=== PATIENT | female | born 1940 | race Caucasian/White ===

== ENCOUNTER → 2016-08-24 | Outpatient (CLI) | payer MEDICARE ==
[~2016-08-24] MED LIST: ACET325T38 PO; ASP81CT PO; ATN50T PO; BUDE6HFA IH; CALC-140 PO; CEFP250T3 PO; DICL100G13 TOP; HYDR473S17 PO; LVT.05T PO; LVT.1T PO; MECL-105 PO; PARO12.5 PO; TML5OP2.5 OS
[2016-08-24 13:55] VITALS: BP 153/102
--- NOTE | 2016-08-24 13:55 | Urgent Care T Sheet Gen (E) ---
Intake General Temperature (Fahrenheit): 99.2 Pulse: 98 Blood Pressure Systolic: 153 Blood Pressure Diastolic: 102 Respirations: 18 SPO2: 95 Description of Symptoms Patient presents with L shoulder pain which radiates down into the elbow. First noticed approx 10-14 days ago. States the upper arm has a bone ache. She is constantly massaging the area. No history of shoulder OA. No decreased ROM in the L shoulder. No weakness or numbness in the L UE. Denies any injury. Last month, the patient had similar pain along the L scapula and base of skull. Unsure if they're related. Patient states she is getting tired of "living on aspirin" Only daily medication the patient takes is an inhaler for COPD. No BP med. Daily smoker. History of Present Illness Allergies: Coded Allergies: Codeine (Verified Allergy, 01/03/12) Pt states not true allergy. Has taken previously with no problems. Etodolac (Verified Allergy, 01/03/12) epinephrine (Verified Allergy, 01/03/12) Pt states not true allergy. Had problems with dental procedure and received multiple doses without being numbed, had side effect from epinephrine. Home Meds Reported Medications Budesonide/Formoterol Fumarate (Symbicort 160/4.5 mcg Inhaler)1 Inhaler Aero2 Puff IH BID 01/09/12 Acetaminophen (Tylenol)325 Mg [id number] Mg PO Q 4H PRN 01/09/12 Timolol Maleate (Timoptic 0.5% Ophthalmic Solution)5 Ml Soln1 Drop OS DAILY 01/03/12 Atenolol 50 Mg [id number] Mg PO DAILY 01/03/12 Respiratory Constitutional Symptoms: No syptoms reported EENTM: No symptoms reported Respiratory: No symptoms reported Cardiovascular: No symptoms reported Musculoskeletal: Joint pain Muscle pain Neurological: No Numbness, No Tingling, No Weakness All Other Systems Reviewed Remaining Systems: All other systems reviewed with negative findings Past Miyoxnj-Wmltwr-Uyojvh Hx Patient's Social History Alcohol Use: Regularly Uses Smoking Status: Current every day smoker Infectious Disease Exposure: No Recent foreign travel: No Surgeries/Hospitalizations Hospitalization/Surgery Hx: hernia tonsillectomy abdi hysterectomy cataracts bilat lens implants bunionectomy Respiratory Respiratory History: COPD, Chronic Bronchitis Cardiovascular Cardiovascular History: Hypertension Neuro/Muscular Neuro/Muscular History: Headache, Memory Loss Comment: recent memory loss, forgets what saying in middle of sentence x 1 day Reproductive System Sexually Transmitted Diseases: No Genitouinary Comment: stress incont with coughing Gastrointestinal GI/Endocrine History: None Diabetes Diabetes: No HEENT Impaired Vision: None Hearing Impaired: None Integumentary Integumentary History: Skin cancer Cancer History of Cancer?: Yes Cancer type: skin Psychosocial Behavior Disorders: Anxiety Blood Transfusions Hx of Blood transfusions: No Physical Exam Physical Exam General Appearance: WD/WN No apparent distress Extremity Exam: Other (examination of the L UE reveals no shoulder subluxation. normal strength in the L shoulder and elbow. negative impingement sign. full, active, non-painful ROM in the L shoulder. No crepitus noted with movement. No pain with isolation of the rotator cuff muscles. no pain along the L clavicle. diffusely tender along the lateral trapezius muscle. very tender along the L supraspinatus muscle. no pain with palpation and isolated contraction of the UE muscles, including deltoid, biceps , triceps, forearm muscles. non tender to palpation over the medial and lateral epicondyles) Neurologic/Psychiatric Exam: No motor deficits (normal strength in L UE) No sensory deficits (normal sensation in L UE however did have a positive tinels over the L carpal tunnel. scar from previous release is noted. negative tinels over the L cubital tunnel.) Departure Urgent Care Impression Impression: Primary Impression: Supraspinatus tendinitis Qualified Code: M75.92 - Shoulder lesion, unspecified, left shoulder Additional Impression: HTN (hypertension) Qualified Code: I10 - Essential (primary) hypertension Departure Disposition: 01 HOME OR SELF-CARE Condition: Stable Additional Instructions: While she didn't have any pain with shoulder manipulation, and her rotator cuff muscles don't appear to be tender with contraction, she is very tender over the supraspinatus muscle. No radiating pain with palpation however. I have referred her to PT or OT for treatment, including modalities. I have also prescribed Voltaren gel which she may apply to affected area BID prn. If no better, she is to return and at that time, I may refer her to an orthopedist to evaluate the shoulder or to [facility] for trigger point injections. Regarding her HTN, encouraged her to stop smoking. Also follow a low salt diet. She needs to f/u with her PCP regarding. Patient understands DC instructions. All questions were answered. Scripts Diclofenac Sodium (Voltaren 1% Gel)100 Gm Gel1 Gm TOP BID PRN PAIN #1 TUBE Apply topically to affected area BID prn pain. Prov:ALINA FRANCO 08/24/16 End of report . ALINA FRANCO Aug 24, 2016 13:55
== END ==
LOC: MHUC 11:45
PROVIDERS: ATTEND Nurse Practitioner
DX: M75.92 Shoulder lesion, unspecified, left shoulder (principal); I10 Essential (primary) hypertension
CPT/HCPCS: 99213

== ENCOUNTER → 2016-09-23 | Outpatient (CLI) | payer MEDICARE ==
[2016-09-23 10:54] VITALS: BP 164/89
--- NOTE | 2016-09-23 10:54 | Urgent Care T Sheet Gen (E) ---
Intake General Temperature (Fahrenheit): 97.9 Pulse: 88 Blood Pressure Systolic: 164 Blood Pressure Diastolic: 89 Respirations: 22 SPO2: 97 Chief Complaint: UC stitches removal Description of Symptoms 76 year old female presents for removal of 2 stitches. State she was at [facility] office 10 days ago and had a reoccurring cyst removed. Stitches were to remain for 10 ten and then faby be removed. Deneis redness, pain, fever or chills. States she does not have a PCP and hasn't been able to find one locally that is accepting new patients. Source: Patient Exam Limitations: No limitations History of Present Illness Initial Comments No redness, drainage, or pain. Timing: Still present Associated Symptoms: Denies symptoms Recent Trauma: No Similar Sympotms Previously: Yes Allergies: Coded Allergies: Codeine (Verified Allergy, 01/03/12) Pt states not true allergy. Has taken previously with no problems. Etodolac (Verified Allergy, 01/03/12) epinephrine (Verified Allergy, 01/03/12) Pt states not true allergy. Had problems with dental procedure and received multiple doses without being numbed, had side effect from epinephrine. Home Meds Active Scripts Diclofenac Sodium (Voltaren 1% Gel)100 Gm Gel1 Gm TOP BID PRN PAIN #1 TUBE Apply topically to affected area BID prn pain. Prov:ALINA FRANCO 08/24/16 Reported Medications Budesonide/Formoterol Fumarate (Symbicort 160/4.5 mcg Inhaler)1 Inhaler Aero2 Puff IH BID 01/09/12 Acetaminophen (Tylenol)325 Mg [id number] Mg PO Q 4H PRN 01/09/12 Timolol Maleate (Timoptic 0.5% Ophthalmic Solution)5 Ml Soln1 Drop OS DAILY 01/03/12 Atenolol 50 Mg [id number] Mg PO DAILY 01/03/12 Respiratory Constitutional Symptoms: No syptoms reported Respiratory: No symptoms reported Cardiovascular: No symptoms reported Skin: No Change in color, No Dryness, No Rash, Other (2 stitches lateral and superior to left eye) All Other Systems Reviewed Remaining Systems: All other systems reviewed with negative findings Past Ldmhtec-Dzwbhd-Ygjlgp Hx Patient's Social History Alcohol Use: Regularly Uses Smoking Status: Current every day smoker Infectious Disease Exposure: No Recent foreign travel: No Surgeries/Hospitalizations Hospitalization/Surgery Hx: hernia tonsillectomy abdi hysterectomy cataracts bilat lens implants bunionectomy Respiratory Respiratory History: COPD, Chronic Bronchitis Cardiovascular Cardiovascular History: Hypertension Neuro/Muscular Neuro/Muscular History: Headache, Memory Loss Comment: recent memory loss, forgets what saying in middle of sentence x 1 day Reproductive System Sexually Transmitted Diseases: No Genitouinary Comment: stress incont with coughing Gastrointestinal GI/Endocrine History: None Diabetes Diabetes: No HEENT Impaired Vision: None Hearing Impaired: None Integumentary Integumentary History: Skin cancer Cancer History of Cancer?: Yes Cancer type: skin Psychosocial Behavior Disorders: Anxiety Blood Transfusions Hx of Blood transfusions: No Physical Exam Physical Exam General Appearance: WD/WN No apparent distress Skin Exam: Normal color Warm/dry/intact No rashes No embolic lesions Other (2 stitches left orbit, incision WA, no drainage, no redness) Procedures/Interventions Suture/Wound Check : Suture/Wound Check: Sutures removed/provider Progress Pt verbalized understanding of procedure and risk of impaired healing and potential scar formation. Two stitches removed. Pt tolerated procedure well. Departure Urgent Care Impression Chief Complaint: UC stitches removal Impression: Primary Impression: Elevated BP without diagnosis of hypertension Additional Impression: Encounter for removal of ina Departure Disposition: 01 HOME OR SELF-CARE Condition: Stable Referrals: Jorgito Okeefe MD (PCP) Patient Instructions: Suture Removal (GEN) Additional Instructions: Advised pt that her BP is elevated and she needs to see a PCP for reevaluation and potential treatment. Discussed risks of HTN and that strong suggest follow up Sunday. Monitor for sx of infection and poor wound healing. Pt verbalized understanding. End of report . EMELY BRUSH STATISTICAL TECHNICIAN September 23, 2016 10:31
== END ==
LOC: MHUC 09:55
PROVIDERS: ATTEND Nurse Practitioner Family
DX: R03.0 Elevated blood-pressure reading, without diagnosis of hypertension (principal); Z48.02 Encounter for removal of sutures
CPT/HCPCS: 99213

== ENCOUNTER → 2016-09-26 | Outpatient (CLI) | payer MEDICARE ==
[2016-09-26 11:40] LABS: BASOPHILS % (AUTO) 1 % (0-2); EOSINOPHILS # (AUTO) 0.1 10^3uL; EOSINOPHILS % (AUTO) 1 % (0-4); LYMPHOCYTES # (AUTO) 1.3 X10^3; MEAN CORPUSCULAR HGB CONC 33.7 g/dL (31.0-37.0); MEAN PLATELET VOLUME 10.8 FL (6.0-9.5); MONOCYTES # (AUTO) 0.7 X10^3; MONOCYTES % (AUTO) 9 % (3-11); NEUTROPHILS # (AUTO) 5.3 X10^3; NEUTROPHILS % (AUTO) 72 % (51-67); PLATELET COUNT 203 10^3uL (150-450); WHITE BLOOD COUNT 7.34 10^3uL (4.0-11.0)
[2016-09-26 11:50] LABS: MEAN CORPUSCULAR HEMOGLOBIN 33.2 PG (26.0-34.0); MEAN CORPUSCULAR VOLUME 99 FL (80-100)
[2016-09-26 12:05] LABS: CLARITY,URINE Slightly Cloudy; COLOR,URINE Yellow
[2016-09-26 12:06] LABS: ALBUMIN 4.1 g/dL (3.4-5.0); ANION GAP 10.4 MEQ/L (3-15); BILIRUBIN,URINE 1+ (Negative); CALCULATED IONIZED CALCIUM 5.5 mg/dL (3.8-4.6); GLUCOSE, URINE (UA) Negative (Negative); LEUKOCYTE ESTERASE ,URINE 1+ (Negative); MAGNESIUM* 1.7 mg/dL (1.6-2.3); TOTAL PROTEIN 6.9 g/dL (6.4-8.5)
[2016-09-26 12:21] LABS: URINE CENTRIFUGED VOLUME 12 mL
[2016-09-26 12:22] LABS: CALCIUM OXALATE CRYSTALS,UR Rare /HPF
--- NOTE | 2016-09-26 14:00 | Diagnostic Imaging Report ---
INDICATION: Cervical radiculopathy, neck pain. COMPARISON: No prior examinations are available for comparison. FINDINGS: The lateral radiograph reveals normal stature aligned anatomically. The prevertebral space appears unremarkable. The oblique view suggests at least mild degrees of foraminal narrowing at the 3-4 and 4-5 levels. No fracture or bony destruction. IMPRESSION: Anatomically aligned cervical spine with mid to lower spondylosis. Oblique radiographs are suggestive of at least mild degrees of osseous foraminal encroachment. Given the findings, if there is persistent clinical suspicion for radicular neck pain, consider an MRI of the cervical spine as further evaluation. An acute bony abnormality is not apparent. Dictated by: Dictated on workstation # [id number]
--- NOTE | 2016-09-26 14:06 | Diagnostic Imaging Report ---
INDICATION: Hypertension. 2 views. COMPARISON: 07/30/2014; 08/20/2015. The cardiac silhouette size is normal. The pulmonary vascularity does not show any venous congestion. There is no alveolar infiltrate or pneumonia. The rajendra are negative. A nodular area projects over the right upper lung; however, this is unchanged from 07/30/2014. A vague area of increased opacity projects over the left upper lung, stable from 07/30/2014, also. Hyperinflation is present. Senescent chest x-ray changes are present. Degenerative changes are noted in the spine. IMPRESSION: No acute disease. Dictated by: Dictated on workstation # [id number]
== END ==
LOC: RAD 10:40
PROVIDERS: ATTEND Family Medicine
DX: I10 Essential (primary) hypertension (principal); M54.12 Radiculopathy, cervical region; E21.0 Primary hyperparathyroidism; E01.8 Other iodine-deficiency related thyroid disorders and allied conditions; R82.99 Other abnormal findings in urine
CPT/HCPCS: 36415; 71020; 72050; 80053; 81003; 81015; 82306; 83735; 83970; 84100; 84439; 84443; 85025; 87088